=== PATIENT | female | born 1965 | race Caucasian/White ===

== ENCOUNTER → 2017-03-09 | Outpatient (CLI) | payer OTHER ==
[~2017-03-09] MED LIST: CIPRO500 MG PO; FLAGYL500 MG PO; HYDROCODONE BIT1 T11 PO; VICODIN 500 MG-1 TAB PO
== END | disposition home or self-care (01) ==
LOC: RAD 15:00
DX: J44.9 Chronic obstructive pulmonary disease, unspecified (principal); J40 Bronchitis, not specified as acute or chronic; F17.210 Nicotine dependence, cigarettes, uncomplicated

== ENCOUNTER → 2017-04-22 | Outpatient (CLI) | payer OTHER | END | disposition home or self-care (01) | LOC: RAD 14:06 | DX: M51.34 Other intervertebral disc degeneration, thoracic region (principal) ==

== ENCOUNTER 2020-12-14 01:53 | Emergency (ER) | payer OTHER ==
[~2020-12-14] VITALS: Ht 170.1 cm; Wt 99.8 kg
[2020-12-14 03:34] LABS: BASO # 0.1 10*3/uL (0.0-0.1); BASO % 0.7 % (0.0-1.0); EOS # 0.1 10*3/uL (0.0-0.4); EOS % 1.2 % (1.0-4.0); HEMATOCRIT 44.5 % (37.0-47.0); LYMPH % 24.5 % (27.0-41.0); MEAN CELL VOLUME 86.6 fl (81.0-99.0); MEAN CORPUSCULAR HGB 28.2 pg (27.0-31.0); MEAN CORPUSCULAR HGB CONC 32.6 g/dl (33.0-37.0); MEAN PLATELET VOLUME 9.7 fl (9.6-12.3); NEUT # 7.9 10*3/uL (2.3-7.9); NEUT % 65.3 % (47.0-73.0); PLATELET COUNT AUTOMATED 266 10*3/uL (130-400); RED BLOOD COUNT 5.14 10*6/uL (4.10-5.10); RED CELL DISTRI WIDTH 13.3 % (0-14.5)
[2020-12-14 03:47] LABS: ALBUMIN 3.7 gm/dl (3.1-4.5); ALKALINE PHOSPHATASE 91 U/L (45-117); BUN 12 mg/dl (7-24); CHLORIDE 108 mmol/L (98-107); CREATININE 0.87 mg/dL (0.55-1.02); LIPASE 49 U/L (73-393); POTASSIUM 3.9 mmol/L (3.5-5.1); SGOT/AST 7 IU/L (3-35); SGPT/ALT 25 U/L (12-78); SODIUM 140 mmol/L (136-145); TOTAL PROTEIN 7.8 gm/dL (6.4-8.2)
[2020-12-14 04:38] LABS: BILIRUBIN Negative (Negative); BLOOD Negative (Negative); CLARITY Clear (Clear); COLOR Yellow (Yellow); GLUCOSE Negative (Negative); KETONE Negative (Negative); LEUKO ESTERASE Negative (Negative); NITRITE Negative (Negative); PH 6.5 (4.5-8.0); SPECIFIC GRAVITY <= 1.005 (1.001-1.030); UROBILINOGEN 0.2 E.U./dl (0.0-1.0)
[2020-12-14 05:17] LABS: BACTERIA TRACE; RBC 0-2 rbc/hpf (0-2); WBC 0-2 wbc/hpf (0-5)
[2020-12-14] MEDS ORDERED: AUGMENTIN 875875 MG PO (05:36)
[2020-12-14] MEDS ORDERED: HYDROCODONE-AC1 EAC1 PO (05:36)
== END 2020-12-14 05:50 | disposition home or self-care (01) ==
LOC: ED 01:53
PROVIDERS: Student in an Organized Health Care Education/Training Program
DX: K57.32 Diverticulitis of large intestine without perforation or abscess without bleeding (principal); Z88.1 Allergy status to other antibiotic agents; Z79.2 Long term (current) use of antibiotics; Z79.899 Other long term (current) drug therapy; Z98.51 Tubal ligation status; Z90.49 Acquired absence of other specified parts of digestive tract

== ENCOUNTER → 2022-05-01 | Outpatient (CLI) | payer OTHER ==
[~2022-05-01] MED LIST changes: +AUGMENTIN 875875 MG PO; +HYDROCODONE-AC1 EAC1 PO
[2022-05-01 10:42] LABS: HEMATOCRIT 44.6 % (37.0-47.0); MEAN PLATELET VOLUME 9.4 fl (9.6-12.3); RED BLOOD COUNT 5.07 10*6/uL (4.10-5.10); RED CELL DISTRI WIDTH 13.6 % (0-14.5)
[2022-05-01 11:00] LABS: ALKALINE PHOSPHATASE 94 U/L (45-117); BUN 14 mg/dl (7-24); CHLORIDE 108 mmol/L (98-107); CHOLESTEROL 228 mg/dL (<200); CREATININE 0.95 mg/dL (0.55-1.02); LDL CHOLESTEROL 161 mg/dL (9-159); POTASSIUM 4.4 mmol/L (3.5-5.1); SGOT/AST 10 IU/L (3-35); SGPT/ALT 22 U/L (12-78); SODIUM 139 mmol/L (136-145); TOTAL PROTEIN 7.8 gm/dL (6.4-8.2); TRIGLYCERIDES 131 mg/dl (<150)
== END | disposition home or self-care (01) ==
LOC: LAB 10:26
PROVIDERS: ATTEND Family Medicine
DX: M19.012 Primary osteoarthritis, left shoulder (principal); E55.9 Vitamin D deficiency, unspecified; E78.00 Pure hypercholesterolemia, unspecified; R53.83 Other fatigue

== ENCOUNTER 2023-09-01 12:58 | Inpatient (IN) | payer SELFPAY ==
[~2023-09-01] VITALS: Wt 102.9 kg
[2023-09-01 13:09] VITALS: BP 149/68
[2023-09-01] MEDS ORDERED: VENTOLIN 02.5 MG/3 M INH (13:09)
[2023-09-01 14:03] LABS: BASO # 0.1 10*3/uL (0.0-0.1); BASO % 0.7 % (0.0-1.0); EOS # 0.2 10*3/uL (0.0-0.4); EOS % 1.9 % (1.0-4.0); HEMATOCRIT 45.3 % (37.0-47.0); MEAN CELL VOLUME 85.3 fl (81.0-99.0); MEAN CORPUSCULAR HGB 28.4 pg (27.0-31.0); MEAN CORPUSCULAR HGB CONC 33.3 g/dl (33.0-37.0); MEAN PLATELET VOLUME 9.1 fl (9.6-12.3); MONO % 8.7 % (3.0-9.0); NEUT # 7.7 10*3/uL (2.3-7.9); NEUT % 68.6 % (47.0-73.0); PLATELET COUNT AUTOMATED 293 10*3/uL (130-400); RED BLOOD COUNT 5.31 10*6/uL (4.10-5.10); RED CELL DISTRI WIDTH 13.7 % (0-14.5); WHITE BLOOD COUNT 11.2 10*3/uL (4.8-10.8)
[2023-09-01 14:15] LABS: ACT PARTIAL THROMBO TIME 25.7 SECONDS (20.0-32.1)
[2023-09-01 14:23] LABS: ALKALINE PHOSPHATASE 112 U/L (46-116); BUN 9 mg/dl (9-23); CHLORIDE 104 mmol/L (98-107); LIPASE 26 U/L (12-53); POTASSIUM 4.5 mmol/L (3.4-5.1); SGPT/ALT 15 U/L (5-49); TOTAL PROTEIN 8.1 gm/dL (6.0-8.0)
[2023-09-01 19:42] VITALS: BP 129/48
[2023-09-02 00:25] VITALS: BP 134/66
[2023-09-02 00:35] VITALS: BP 139/77
[2023-09-02 06:42] LABS: BASO % 0.2 % (0.0-1.0); HEMATOCRIT 44.5 % (37.0-47.0); LYMPH # 1.7 10*3/uL (1.3-4.4); LYMPH % 11.6 % (27.0-41.0); MEAN CELL VOLUME 87.6 fl (81.0-99.0); MEAN CORPUSCULAR HGB CONC 31.9 g/dl (33.0-37.0); MEAN PLATELET VOLUME 9.4 fl (9.6-12.3); MONO # 0.3 10*3/uL (0.1-1.0); MONO % 2.1 % (3.0-9.0); NEUT # 12.2 10*3/uL (2.3-7.9); NEUT % 85.4 % (47.0-73.0); PLATELET COUNT AUTOMATED 311 10*3/uL (130-400); RED BLOOD COUNT 5.08 10*6/uL (4.10-5.10); RED CELL DISTRI WIDTH 13.6 % (0-14.5); WHITE BLOOD COUNT 14.3 10*3/uL (4.8-10.8)
[2023-09-02 07:03] LABS: BUN 13 mg/dl (9-23); CHLORIDE 106 mmol/L (98-107); CHOLESTEROL 206 mg/dL (<200); LDL CHOLESTEROL 153 mg/dL (9-159); POTASSIUM 4.4 mmol/L (3.4-5.1); TRIGLYCERIDES 91 mg/dl (<150)
[2023-09-02 08:00] VITALS: BP 118/69
[2023-09-02 12:00] VITALS: BP 124/64
[2023-09-02 16:00] VITALS: BP 123/67
[2023-09-02 20:00] VITALS: BP 123/67
[2023-09-03] VITALS: BP 130/76
[2023-09-03 03:37] LABS: BILIRUBIN Negative (Negative); BLOOD Negative (Negative); CLARITY Clear (Clear); COLOR Yellow (Yellow); GLUCOSE 1+ (Negative); KETONE Negative (Negative); LEUKO ESTERASE Negative (Negative); NITRITE Negative (Negative); SPECIFIC GRAVITY 1.015 (1.001-1.030); UROBILINOGEN 0.2 E.U./dl (0.0-1.0)
[2023-09-03 03:51] LABS: RBC 0-2 rbc/hpf (0-2); WBC 0-2 wbc/hpf (0-5)
[2023-09-03 06:16] LABS: BASO % 0.2 % (0.0-1.0); LYMPH # 1.7 10*3/uL (1.3-4.4); LYMPH % 7.7 % (27.0-41.0); MEAN CELL VOLUME 86.5 fl (81.0-99.0); MEAN CORPUSCULAR HGB 28.4 pg (27.0-31.0); MEAN CORPUSCULAR HGB CONC 32.8 g/dl (33.0-37.0); MEAN PLATELET VOLUME 9.6 fl (9.6-12.3); MONO # 0.9 10*3/uL (0.1-1.0); MONO % 4.3 % (3.0-9.0); NEUT # 18.8 10*3/uL (2.3-7.9); NEUT % 86.8 % (47.0-73.0); PLATELET COUNT AUTOMATED 320 10*3/uL (130-400); RED BLOOD COUNT 4.97 10*6/uL (4.10-5.10); RED CELL DISTRI WIDTH 13.7 % (0-14.5); WHITE BLOOD COUNT 21.6 10*3/uL (4.8-10.8)
[2023-09-03 08:00] VITALS: BP 137/60
[2023-09-03 12:00] VITALS: BP 118/92
[2023-09-03 16:00] VITALS: BP 131/66
[2023-09-03 20:00] VITALS: BP 143/67
[2023-09-04] VITALS: BP 140/65
[2023-09-04 08:00] VITALS: BP 146/72
[2023-09-04 10:10] LABS: BASO # 0.1 10*3/uL (0.0-0.1); BASO % 0.2 % (0.0-1.0); EOS % 0.1 % (1.0-4.0); LYMPH # 1.7 10*3/uL (1.3-4.4); LYMPH % 8.7 % (27.0-41.0); MEAN CELL VOLUME 87.3 fl (81.0-99.0); MEAN CORPUSCULAR HGB 28.2 pg (27.0-31.0); MEAN CORPUSCULAR HGB CONC 32.3 g/dl (33.0-37.0); MEAN PLATELET VOLUME 10.3 fl (9.6-12.3); MONO # 0.7 10*3/uL (0.1-1.0); MONO % 3.6 % (3.0-9.0); NEUT # 17.3 10*3/uL (2.3-7.9); NEUT % 86.1 % (47.0-73.0); PLATELET COUNT AUTOMATED 369 10*3/uL (130-400); RED BLOOD COUNT 5.04 10*6/uL (4.10-5.10); WHITE BLOOD COUNT 20.1 10*3/uL (4.8-10.8)
[2023-09-04 12:00] VITALS: BP 152/62
[2023-09-04 16:00] VITALS: BP 120/87
[2023-09-04 20:00] VITALS: BP 127/71
[2023-09-04 20:14] LABS: ABG BASE EXCESS 0.5 mmol/L (-2.0-2.0); ARTERIAL BLOOD GAS PH 7.433 (7.35-7.45)
[2023-09-05] VITALS: BP 129/62
[2023-09-05 08:00] VITALS: BP 149/70
[2023-09-05 12:00] VITALS: BP 149/82
[2023-09-05 16:00] VITALS: BP 151/77
[2023-09-05 20:00] VITALS: BP 171/67
[2023-09-06] VITALS: BP 138/78
[2023-09-06 08:00] VITALS: BP 159/79
[2023-09-06 12:00] VITALS: BP 153/72
[2023-09-06] MEDS ORDERED: OXYGEN NAS (12:30)
[2023-09-06] MEDS ORDERED: PREDNISONE10 MG PO (12:41)
[2023-09-06] MEDS ORDERED: DOXYCYCLINE HY100 M3 PO (12:41)
[2023-09-06] MEDS ORDERED: ADV 100/50 INH (12:41)
== END 2023-09-06 15:52 | disposition home or self-care (01) | DRG 189 ==
LOC: ED 12:58 → EDHOLD 16:42 → 4E 16:42
PROVIDERS: Emergency Medicine; Internal Medicine; Internal Medicine Critical Care Medicine; ADMIT Internal Medicine; ATTEND Internal Medicine
PROC: 5A0935A Assistance with Respiratory Ventilation, Less than 24 Consecutive Hours, High Flow/Velocity Cannula (ICD-10-PCS; principal; 2023-09-02)
DX: J96.01 Acute respiratory failure with hypoxia (principal); R65.10 Systemic inflammatory response syndrome (SIRS) of non-infectious origin without acute organ dysfunction; J44.1 Chronic obstructive pulmonary disease with (acute) exacerbation; F17.210 Nicotine dependence, cigarettes, uncomplicated; K57.30 Diverticulosis of large intestine without perforation or abscess without bleeding; E66.9 Obesity, unspecified; R73.9 Hyperglycemia, unspecified; T38.0X5A Adverse effect of glucocorticoids and synthetic analogues, initial encounter; Y92.89 Other specified places as the place of occurrence of the external cause; Z88.1 Allergy status to other antibiotic agents; Z90.49 Acquired absence of other specified parts of digestive tract; Z98.51 Tubal ligation status; Z82.49 Family history of ischemic heart disease and other diseases of the circulatory system; Z83.6 Family history of other diseases of the respiratory system; Z68.36 Body mass index [BMI] 36.0-36.9, adult

== ENCOUNTER → 2023-09-09 | Outpatient (CLI) | payer SELFPAY ==
[~2023-09-09] MED LIST changes: +ADV 100/50 INH; +DOXYCYCLINE HY100 M3 PO; +OXYGEN NAS; +PREDNISONE10 MG PO; +VENTOLIN 02.5 MG/3 M INH
[2023-09-09 12:08] LABS: HEMATOCRIT 45.8 % (37.0-47.0); MEAN CELL VOLUME 86.7 fl (81.0-99.0); MEAN CORPUSCULAR HGB 27.8 pg (27.0-31.0); MEAN CORPUSCULAR HGB CONC 32.1 g/dl (33.0-37.0); MEAN PLATELET VOLUME 9.8 fl (9.6-12.3); PLATELET COUNT AUTOMATED 257 10*3/uL (130-400); RED BLOOD COUNT 5.28 10*6/uL (4.10-5.10); RED CELL DISTRI WIDTH 13.9 % (0-14.5); WHITE BLOOD COUNT 23.7 10*3/uL (4.8-10.8)
[2023-09-09 12:10] LABS: MANUAL DIFF REFLEX YES
[2023-09-09 12:34] LABS: POTASSIUM 3.9 mmol/L (3.4-5.1); TOTAL PROTEIN 6.7 gm/dL (6.0-8.0)
[2023-09-09 13:37] LABS: TOTAL CELLS COUNTED 100 #CELLS
[2023-09-09 13:38] LABS: PLATELET SUFFICIENCY NORMAL (NORMAL)
== END | disposition home or self-care (01) ==
LOC: LAB 11:00
PROVIDERS: ATTEND Internal Medicine
DX: J96.01 Acute respiratory failure with hypoxia (principal); R73.9 Hyperglycemia, unspecified

== ENCOUNTER 2024-02-17 08:33 | Emergency (ER) | payer OTHER ==
[~2024-02-17] VITALS: Ht 170.1 cm; Wt 102.1 kg
[2024-02-17] MEDS ORDERED: Albuterol Sulf/Ipratropium 3 ML VIAL NEB ONE (08:55)
[2024-02-17] MEDS ORDERED: SODIUM CHLORIDE 0.9% 1,000 ML IV ONE (08:55)
[2024-02-17 09:08] LABS: BASO # 0.1 10*3/uL (0.0-0.1); BASO % 1.2 % (0.0-1.0); EOS # 0.3 10*3/uL (0.0-0.4); EOS % 2.6 % (1.0-4.0); HEMATOCRIT 45.9 % (37.0-47.0); LYMPH # 2.2 10*3/uL (1.3-4.4); MEAN CELL VOLUME 85.5 fl (81.0-99.0); MEAN CORPUSCULAR HGB 27.4 pg (27.0-31.0); MEAN PLATELET VOLUME 9.4 fl (9.6-12.3); MONO # 0.7 10*3/uL (0.1-1.0); MONO % 5.7 % (3.0-9.0); NEUT # 8.3 10*3/uL (2.3-7.9); NEUT % 71.2 % (47.0-73.0); PLATELET COUNT AUTOMATED 308 10*3/uL (130-400); RED BLOOD COUNT 5.37 10*6/uL (4.10-5.10); RED CELL DISTRI WIDTH 13.8 % (0-14.5); WHITE BLOOD COUNT 11.6 10*3/uL (4.8-10.8)
[2024-02-17 09:29] LABS: ALKALINE PHOSPHATASE 92 U/L (46-116); BUN 8 mg/dl (9-23); CHLORIDE 106 mmol/L (98-107); LIPASE 34 U/L (12-53); POTASSIUM 4.3 mmol/L (3.4-5.1); SGPT/ALT 15 U/L (5-49); TOTAL PROTEIN 7.6 gm/dL (6.0-8.0)
[2024-02-17] MEDS ORDERED: OMNICEF300 MG PO (11:27)
[2024-02-17] MEDS ORDERED: AVPAK AZITHROM250 M1 PO (11:27)
[2024-02-17] MEDS ORDERED: ONDANSETRON4 MG SL (11:27)
== END 2024-02-17 11:35 | disposition home or self-care (01) ==
LOC: ED 08:33
PROVIDERS: Internal Medicine
DX: A08.4 Viral intestinal infection, unspecified (principal); Z20.822 Contact with and (suspected) exposure to COVID-19; J44.1 Chronic obstructive pulmonary disease with (acute) exacerbation; E11.9 Type 2 diabetes mellitus without complications; R11.2 Nausea with vomiting, unspecified; R19.7 Diarrhea, unspecified; Z88.8 Allergy status to other drugs, medicaments and biological substances; Z90.49 Acquired absence of other specified parts of digestive tract; Z98.51 Tubal ligation status; Z98.890 Other specified postprocedural states

== ENCOUNTER 2024-07-28 00:47 | Emergency (ER) | payer OTHER ==
[~2024-07-28] VITALS: Ht 170.1 cm; Wt 103.4 kg
[~2024-07-28 00:47] MED LIST changes: +AVPAK AZITHROM250 M1 PO; +OMNICEF300 MG PO; +ONDANSETRON4 MG SL
[2024-07-28] MEDS ORDERED: Albuterol Sulf/Ipratropium 3 ML VIAL NEB ONE (00:50)
[2024-07-28] MEDS ORDERED: methylPREDNISolone sod succ 125 MG VIAL IV ONE (00:50)
[2024-07-28 01:05] LABS: BASO # 0.1 10*3/uL (0.0-0.1); BASO % 0.9 % (0.0-1.0); EOS # 0.6 10*3/uL (0.0-0.4); EOS % 5.8 % (1.0-4.0); HEMATOCRIT 43.2 % (37.0-47.0); LYMPH # 2.3 10*3/uL (1.3-4.4); LYMPH % 22.7 % (27.0-41.0); MEAN CELL VOLUME 86.9 fl (81.0-99.0); MEAN CORPUSCULAR HGB 27.6 pg (27.0-31.0); MEAN CORPUSCULAR HGB CONC 31.7 g/dl (33.0-37.0); MEAN PLATELET VOLUME 9.3 fl (9.6-12.3); MONO # 0.8 10*3/uL (0.1-1.0); MONO % 7.8 % (3.0-9.0); NEUT # 6.2 10*3/uL (2.3-7.9); PLATELET COUNT AUTOMATED 348 10*3/uL (130-400); RED BLOOD COUNT 4.97 10*6/uL (4.10-5.10)
[2024-07-28 01:24] LABS: BUN 10 mg/dl (9-23); CHLORIDE 105 mmol/L (98-107)
[2024-07-28] MEDS ORDERED: PREDNISONE20 M1 PO (02:53)
[2024-07-28] MEDS ORDERED: ZITHROMAX250 MG PO (02:53)
== END 2024-07-28 03:08 | disposition home or self-care (01) ==
LOC: ED 00:47
PROVIDERS: Internal Medicine
DX: J20.8 Acute bronchitis due to other specified organisms (principal); Z20.822 Contact with and (suspected) exposure to COVID-19; B34.9 Viral infection, unspecified; F17.210 Nicotine dependence, cigarettes, uncomplicated; Z88.1 Allergy status to other antibiotic agents; Z79.899 Other long term (current) drug therapy; Z79.2 Long term (current) use of antibiotics; Z90.49 Acquired absence of other specified parts of digestive tract; Z98.51 Tubal ligation status

== ENCOUNTER 2024-08-27 21:48 | Emergency (ER) | payer OTHER ==
[~2024-08-27] VITALS: Ht 170.1 cm; Wt 103.4 kg
[~2024-08-27 21:48] MED LIST changes: +PREDNISONE20 M1 PO; +ZITHROMAX250 MG PO
[2024-08-27] MEDS ORDERED: VENT7GM INH (22:20)
[2024-08-27] MEDS ORDERED: methylPREDNISolone sod succ 125 MG VIAL IV ONE (22:50)
[2024-08-27 23:07] LABS: BASO # 0.1 10*3/uL (0.0-0.1); BASO % 0.7 % (0.0-1.0); EOS # 0.1 10*3/uL (0.0-0.4); EOS % 0.9 % (1.0-4.0); HEMATOCRIT 44.6 % (37.0-47.0); MEAN CELL VOLUME 85.3 fl (81.0-99.0); MEAN CORPUSCULAR HGB 27.7 pg (27.0-31.0); MEAN CORPUSCULAR HGB CONC 32.5 g/dl (33.0-37.0); MEAN PLATELET VOLUME 9.3 fl (9.6-12.3); MONO # 1.1 10*3/uL (0.1-1.0); MONO % 8.5 % (3.0-9.0); NEUT # 8.4 10*3/uL (2.3-7.9); NEUT % 63.3 % (47.0-73.0); PLATELET COUNT AUTOMATED 317 10*3/uL (130-400); RED BLOOD COUNT 5.23 10*6/uL (4.10-5.10); RED CELL DISTRI WIDTH 13.4 % (0-14.5); WHITE BLOOD COUNT 13.3 10*3/uL (4.8-10.8)
[2024-08-27 23:23] LABS: BUN 9 mg/dl (9-23); CHLORIDE 103 mmol/L (98-107); POTASSIUM 4.2 mmol/L (3.4-5.1)
[2024-08-27] MEDS ORDERED: SODIUM CHLORIDE 0.9% 1,000 ML IV SCH (23:40)
[2024-08-27] MEDS ORDERED: Ceftriaxone Sodium 1 GM/10 ML SYR IV ONE (23:40)
[2024-08-27] MEDS ORDERED: AZITHROMYCIN 250 MG TAB PO ONE (23:40)
[2024-08-27 23:53] LABS: BILIRUBIN Negative (Negative); BLOOD Negative (Negative); CLARITY Clear (Clear); COLOR Yellow (Yellow); GLUCOSE Negative (Negative); KETONE Negative (Negative); LEUKO ESTERASE Negative (Negative); NITRITE Negative (Negative); PH 6.5 (4.5-8.0); SPECIFIC GRAVITY <= 1.005 (1.001-1.030); UROBILINOGEN 0.2 E.U./dl (0.0-1.0)
[2024-08-28 00:17] LABS: WBC 0-2 wbc/hpf (0-5)
[2024-08-28] MEDS ORDERED: AMOX-CLAV 875-1 EACH PO (00:50)
[2024-08-28] MEDS ORDERED: MEDROL DOSEPAK4 MG PO (00:50)
[2024-08-28] MEDS ORDERED: [UNRECOGNIZED DRUG - CODE] MC (00:50)
== END 2024-08-28 01:12 | disposition home or self-care (01) ==
LOC: ED 21:48
PROVIDERS: Internal Medicine
DX: A41.9 Sepsis, unspecified organism (principal); Z20.822 Contact with and (suspected) exposure to COVID-19; B37.2 Candidiasis of skin and nail; J44.1 Chronic obstructive pulmonary disease with (acute) exacerbation; F17.210 Nicotine dependence, cigarettes, uncomplicated; Z53.29 Procedure and treatment not carried out because of patient's decision for other reasons; Z88.1 Allergy status to other antibiotic agents; Z79.899 Other long term (current) drug therapy; Z90.49 Acquired absence of other specified parts of digestive tract; Z98.51 Tubal ligation status

== ENCOUNTER 2024-08-29 03:45 | Emergency (ER) | payer OTHER ==
[~2024-08-29] VITALS: Ht 167.6 cm; Wt 90.7 kg
[~2024-08-29 03:45] MED LIST changes: +AMOX-CLAV 875-1 EACH PO; +MEDROL DOSEPAK4 MG PO; +VENT7GM INH; +[UNRECOGNIZED DRUG - CODE] MC
[2024-08-29 04:09] LABS: BILIRUBIN Negative (Negative); BLOOD Negative (Negative); CLARITY Clear (Clear); COLOR Yellow (Yellow); GLUCOSE Negative (Negative); HEMATOCRIT 43.3 % (37.0-47.0); KETONE Negative (Negative); LEUKO ESTERASE Negative (Negative); MEAN CELL VOLUME 86.8 fl (81.0-99.0); MEAN CORPUSCULAR HGB 27.9 pg (27.0-31.0); MEAN CORPUSCULAR HGB CONC 32.1 g/dl (33.0-37.0); MEAN PLATELET VOLUME 9.3 fl (9.6-12.3); NITRITE Negative (Negative); PH 5.5 (4.5-8.0); PLATELET COUNT AUTOMATED 309 10*3/uL (130-400); RED BLOOD COUNT 4.99 10*6/uL (4.10-5.10); RED CELL DISTRI WIDTH 13.5 % (0-14.5); UROBILINOGEN 0.2 E.U./dl (0.0-1.0); WHITE BLOOD COUNT 22.6 10*3/uL (4.8-10.8)
[2024-08-29 04:10] LABS: MANUAL DIFF REFLEX YES
[2024-08-29 04:22] LABS: MUCOUS TRACE; RBC 0-2 rbc/hpf (0-2)
[2024-08-29 04:28] LABS: BUN 16 mg/dl (9-23); CHLORIDE 105 mmol/L (98-107)
[2024-08-29 04:31] LABS: PLATELET SUFFICIENCY NORMAL (NORMAL); TOTAL CELLS COUNTED 100 #CELLS
[2024-08-29] MEDS ORDERED: FLUCONAZOLE 150 MG TAB PO ONE (05:00)
[2024-08-29] MEDS ORDERED: hydrOXYzine pamoate 25 MG CAP PO ONE (05:00)
[2024-08-29] MEDS ORDERED: FLUCONAZOLE 100 MG TAB PO ONE (05:10)
== END 2024-08-29 05:22 | disposition home or self-care (01) ==
LOC: ED 03:45
PROVIDERS: Internal Medicine
DX: B36.9 Superficial mycosis, unspecified (principal); D72.829 Elevated white blood cell count, unspecified; J44.9 Chronic obstructive pulmonary disease, unspecified; E11.65 Type 2 diabetes mellitus with hyperglycemia; F17.210 Nicotine dependence, cigarettes, uncomplicated; Z88.1 Allergy status to other antibiotic agents; Z90.49 Acquired absence of other specified parts of digestive tract; Z98.890 Other specified postprocedural states

== ENCOUNTER 2025-04-30 13:11 | Emergency (ER) | payer OTHER ==
[~2025-04-30] VITALS: Wt 102.1 kg
[~2025-04-30 13:11] MED LIST changes: +TRESIBA100 UNIT/1 SQ
[2025-04-30 14:06] LABS: BASO # 0.1 10*3/uL (0.0-0.1); BASO % 1.1 % (0.0-1.0); EOS # 0.3 10*3/uL (0.0-0.4); EOS % 2.0 % (1.0-4.0); MEAN CELL VOLUME 81.3 fl (81.0-99.0); MEAN CORPUSCULAR HGB 27.4 pg (27.0-31.0); MEAN PLATELET VOLUME 8.1 fl (9.6-12.3); MONO # 0.9 10*3/uL (0.1-1.0); MONO % 7.0 % (3.0-9.0); NEUT # 8.4 10*3/uL (2.3-7.9); NEUT % 65.2 % (47.0-73.0); NUCLEATED RED BLOOD CELL 0.0 % (0.0-0.0); NUCLEATED RED BLOOD CELL 0.0 10*3/uL (0.0-0.0); PLATELET COUNT AUTOMATED 400 10*3/uL (130-400); RED CELL DISTRI WIDTH 13.1 % (0-14.5)
[2025-04-30 14:24] LABS: BUN 10 mg/dl (9-23)
[2025-04-30] MEDS ORDERED: Ondansetron Hydrochloride 4 MG/2 ML VIAL IV ONE (16:35)
[2025-04-30 20:43] LABS: BUN 9 mg/dl (9-23)
[2025-04-30] MEDS ORDERED: ACETAMINOPHEN 325 MG TAB PO ONE (20:55)
== END 2025-04-30 19:46 | disposition short-term general hospital (02) ==
LOC: ED 13:11
PROVIDERS: Nurse Practitioner Family
DX: E22.2 Syndrome of inappropriate secretion of antidiuretic hormone (principal); R91.8 Other nonspecific abnormal finding of lung field; E11.9 Type 2 diabetes mellitus without complications; J44.9 Chronic obstructive pulmonary disease, unspecified; F17.200 Nicotine dependence, unspecified, uncomplicated; Z79.899 Other long term (current) drug therapy; Z88.1 Allergy status to other antibiotic agents; Z90.49 Acquired absence of other specified parts of digestive tract; Z98.51 Tubal ligation status; Z98.890 Other specified postprocedural states

== ENCOUNTER 2025-05-08 17:29 | Emergency (ER) | payer OTHER ==
[~2025-05-08] VITALS: Ht 170.1 cm; Wt 102.1 kg
[2025-05-08 19:34] LABS: BASO # 0.1 10*3/uL (0.0-0.1); BASO % 0.9 % (0.0-1.0); EOS # 0.3 10*3/uL (0.0-0.4); EOS % 2.1 % (1.0-4.0); MEAN CELL VOLUME 82.4 fl (81.0-99.0); MEAN CORPUSCULAR HGB 26.6 pg (27.0-31.0); MEAN PLATELET VOLUME 8.5 fl (9.6-12.3); MONO # 0.9 10*3/uL (0.1-1.0); MONO % 6.5 % (3.0-9.0); NEUT # 9.3 10*3/uL (2.3-7.9); NEUT % 67.0 % (47.0-73.0); NUCLEATED RED BLOOD CELL 0.0 % (0.0-0.0); NUCLEATED RED BLOOD CELL 0.0 10*3/uL (0.0-0.0); PLATELET COUNT AUTOMATED 348 10*3/uL (130-400); RED CELL DISTRI WIDTH 12.8 % (0-14.5)
[2025-05-08 19:54] LABS: BUN 7 mg/dl (9-23)
[2025-05-08] MEDS ORDERED: SODIUM CHLORIDE 0.9% 1,000 ML IV ONE (20:00)
[2025-05-08] MEDS ORDERED: Albuterol Sulf/Ipratropium 3 ML VIAL NEB ONE (20:25)
[2025-05-08] MEDS ORDERED: Ondansetron Hydrochloride 4 MG/2 ML VIAL IV ONE ×2 (20:25→23:35)
[2025-05-08] MEDS ORDERED: Ondansetron4 MG PO (23:33)
== END 2025-05-09 01:02 | disposition home or self-care (01) ==
LOC: ED 17:29
PROVIDERS: Internal Medicine
DX: B34.9 Viral infection, unspecified (principal); E87.1 Hypo-osmolality and hyponatremia; D72.829 Elevated white blood cell count, unspecified; J44.9 Chronic obstructive pulmonary disease, unspecified; E11.9 Type 2 diabetes mellitus without complications; F17.200 Nicotine dependence, unspecified, uncomplicated; Z88.1 Allergy status to other antibiotic agents; Z90.49 Acquired absence of other specified parts of digestive tract; Z98.51 Tubal ligation status; Z98.890 Other specified postprocedural states